=== PATIENT | male | born 1985 | race Hispanic/Latino ===

== ENCOUNTER 2020-08-24 16:27 | Emergency (ER) | payer BC, OTHER ==
[~2020-08-24] VITALS: Ht 175.3 cm; Wt 119.7 kg
[2020-08-24] MEDS ORDERED: ACETAMINOPHEN 325 MG TAB PO ONE (17:15)
[2020-08-24] MEDS ORDERED: ACETAMINOPHEN 325 MG TAB ONE (17:27)
[2020-08-24] MEDS ORDERED: CEFTRIAXONE SOD 1 GM/50 ML BAG IV ONE (18:15)
[2020-08-24] MEDS ORDERED: DEXAMETHASONE SOD PHOS INJ 4 MG/ML VIAL IV ONE (18:15)
[2020-08-24] MEDS ORDERED: CEFTRIAXONE SOD 1 GM VIAL ONE (18:21)
== END 2020-08-24 18:55 | disposition home or self-care (01) ==
LOC: FSED 17:03
DX: U07.1 COVID-19 (principal); J18.9 Pneumonia, unspecified organism; R50.9 Fever, unspecified; R05 Cough; R53.83 Other fatigue
CPT/HCPCS: 71045; 80053; 85025; 99284; J0696; J1100

== ENCOUNTER 2022-11-10 12:27 | Emergency (ER) | payer BC ==
[~2022-11-10] VITALS: Ht 175.3 cm; Wt 118.0 kg
[2022-11-10] MEDS ORDERED: OMEPRAZOLE40 MG PO (12:45)
[2022-11-10] MEDS ORDERED: KETOROLAC TROMETHAMINE 30 MG/ML VIAL ONE (12:58)
[2022-11-10] MEDS ORDERED: KETOROLAC TROMETHAMINE 30 MG/ML VIAL IM PRN (13:00)
[2022-11-10 13:40] VITALS: O2SAT 99
== END 2022-11-10 14:17 | disposition home or self-care (01) ==
LOC: FSED 12:31
DX: M54.6 Pain in thoracic spine (principal); M54.2 Cervicalgia; M25.512 Pain in left shoulder; M25.511 Pain in right shoulder; K21.9 Gastro-esophageal reflux disease without esophagitis
CPT/HCPCS: 71046; 96372; 99283; J1885